=== PATIENT | female | born 1995 ===

== ENCOUNTER 2016-10-05 16:47 | Emergency (ER) | payer MEDICAID ==
[2016-10-05 16:48] VITALS: BMI 19.3
--- NOTE | 2016-10-05 17:22 | ED PDOC ---
Arrival/HPI - General Historian: Patient - History of Present Illness Time/Duration: < week Symptom Onset: Gradual Symptom Course: Worsening Quality: Throbbing Severity Level: 8 Activities at Onset: Other - General Chief Complaint: Abdominal Pain Time Seen by Provider: 10/05/16 17:15 - History of Present Illness Narrative History of Present Illness (Text): 20 F with no significant PMH presents to ED for complaint of back pain, yeast infection and UTI. Patient stated that it began Saturday. She went to [facility] on Saturday because she wanted to see if it would resolve on its own. At [facility], she was diagnosed with UTI. She was discharged on Cephalexin and Ibuprofen. Patient stated that she was unable to tolerate the medication and stopped taking it due to episodes of nausea/vomiting. She rated the pain as 8/10 in severity. She described the pain as constant, throbbing pain located on the L flank without radiation. Coughing, sneezing, deep breaths exacer fercho the pain while nothing alleviates it. Admits to dysuria, frequency, white vaginal discharge, fever/chills, nausea/vomiting. Denies cp, palpitations , abd pain, diarrhea. PMD: Denies PMH: Denies Med: Denies Allergy: guaifenesin PSH: Denies Hosp: child 06/2016 Fh: Renal CA Social: lives with family, unemployed, denies smoking/illicit drug use, occasional etoh use, LNMP 2 weeks ago - normal duration and flow (Imbrescia,Juan ) Past Medical History - Provider Review Nursing Documentation Reviewed: Yes - Travel History Have you recently traveled outside [place] w/in the past 3 mons?: No - Past History Past History: Non-Contributing - Infectious Disease Hx of Infectious Diseases: None - Reproductive Menopause: No - Cardiac Hx Hypotension: Yes - Renal Hx Pyelonephritis: Yes - Genitourinary/Gynecological Hx Genitourinary Disorders: Yes Hx Urinary Tract Infection: Yes - Psychiatric Hx Psychophysiologic Disorder: No Hx Substance Use: No - Anesthesia Hx Anesthesia: No Family/Social History - Physician Review Nursing Documentation Reviewed: Yes Family/Social History: Neoplasm/Cancer Smoking Status: Never Smoked Hx Alcohol Use: No Hx Substance Use: No Allergies/Home Meds Allergies/Adverse Reactions: Allergies guaifenesin [From Robitussin] Allergy (Verified 10/05/16 17:12) RASH Review of Systems - Review of Systems Constitutional: Fatigue, Fevers Eyes: absent: Vision Changes, Photophobia, Eye Pain ENT: absent: Hearing Changes, TMJ Pain Respiratory: absent: SOB, Cough, Wheezing Cardiovascular: absent: Chest Pain, Palpitations Gastrointestinal: Nausea, Vomiting. absent: Abdominal Pain Genitourinary Female: Dysuria, Frequency, Vaginal Discharge Musculoskeletal: Arthralgias, Back Pain Skin: absent: Rash Neurological: absent: Headache, Dizziness Endocrine: absent: Polydipsia, Other Hemo/Lymphatic: absent: Adenopathy, Easy Bleeding, Easy Bruising Psychiatric: absent: Anxiety, Depression, Suicidal Ideation Physical Exam Vital Signs Reviewed: Yes Temperature: Afebrile Blood Pressure: Normal Pulse: Tachycardic Respiratory Rate: Normal Appearance: Positive for: Comfortable Pain Distress: Moderate Mental Status: Positive for: Alert and Oriented X 3 - Systems Exam Head: No: Atraumatic, Normocephalic Pupils: Present: PERRL Extroacular Muscles: Present: EOMI Conjunctiva: Present: Normal Ears: Present: NORMAL TM Mouth: Present: Moist Mucous Membranes Pharnyx: Present: Normal Nose (External): No: Atraumatic, Abrasion Nose (Internal): Present: Normal Inspection Neck: Present: Normal Range of Motion, Trachea Midline Respiratory/Chest: Present: Clear to Auscultation, Good Air Exchange. No: Respiratory Distress, Accessory Muscle Use, Wheezes, Rales, Rhonchi Cardiovascular: Present: Normal S1, S2, Peripheal Pulses Present, Tachycardic Abdomen: Present: Normal Bowel Sounds. No: Tenderness, Distention, Peritoneal Signs, Rebound, Guarding Back: Present: CVA Tenderness (Left) Upper Extremity: Present: Normal Inspection, Normal ROM, NORMAL PULSES, Neurovascularly Intact, Capillary Refill < 2s. No: Cyanosis, Edema Lower Extremity: Present: Normal Inspection, NORMAL PULSES, Normal ROM, Capillary Refill < 2 s Neurological: Present: GCS=15, CN II-XII Intact, Speech Normal, Motor Func Grossly Intact Skin: Present: Warm, Dry, Normal Color Lymphatic: No: Cervical Adenopathy, Axillary Adenopathy, Inguinal Adenopathy Psychiatric: Present: Alert, Oriented x 3, Normal Insight, Normal Concentration Medical Decision Making ED Course and Treatment: 10/05/16 18:01 Patient given zofran, NS bolus, IV cipro. CBC, CMP, UA, Urine C&S, and Urine ordered. Labs were unremarkable. Patient was able to tolerate some liquids and food by mouth. Patient stable for discharge home. Rx for cipro, zofran, and ibuprofen given. (Juan Sorto) Seen and examined with resident. 20 y/o F p/w L flank pain and dysuria. L CVA tenderness on exam. Diagnosed with pyelo 2 days ago and discharged on Keflex and ibuprofen. Patient states she vomits up the medication and food. On comparison to previous visit, patient's temperature and HR much improved. Repeat labs here show much improvement in leukocytosis. Will change antibiotic to Cipro, add Zofran. Patient tolerated PO in ED. (Ferny Knutson) - Lab Interpretations Lab Results: 10/05/16 17:55 10/05/16 17:55 Lab Results 10/05/16 17:55: Urine Color Yellow, Urine Appearance Sl cloudy, Urine pH 6.0, Ur Specific [place] 1.010, Urine Protein Trace H, Urine Glucose (UA) Negative, Urine Ketones Negative, Urine Blood Small H, Urine Nitrate Negative, Urine Bilirubin Negative, Urine Urobilinogen 1.0 H, Ur Leukocyte Esterase Small H, Urine RBC 0 - 2, Urine WBC 10 - 15, Ur Epithelial Cells 4 - 5, Urine Bacteria Small, Urine HCG, Qual Negative 10/05/16 17:55: Sodium 137, Potassium 3.4 L, Chloride 99, Carbon Dioxide 24, Anion Gap 17, BUN 9, Creatinine 0.8, Est GFR ( Amer) > 60, Est GFR (Non- Af Amer) > 60, Random Glucose 91, Calcium 9.0, Total Bilirubin 0.7, AST 29, ALT 29, Alkaline Phosphatase 131, Total Protein 8.1, Albumin 4.6, Globulin 3.5, Albumin/Globulin Ratio 1.3 10/05/16 17:55: WBC 6.7 D, RBC 4.70, Hgb 13.4, Hct 38.0, MCV 80.9, MCH 28.5, MCHC 35.3, RDW 13.4, Plt Count 223, MPV 11.4 H - Medication Orders Current Medication Orders: Discontinued Medications Sodium Chloride (Sodium Chloride 0.9%) 1,000 mls @ 999 mls/hr IV .Q1H1M STA Stop: 10/05/16 18:36 Last Admin: 10/05/16 18:05 Dose: 999 mls/hr Ciprofloxacin (Cipro 400mg/200ml Dsw) 400 mg in 200 mls @ 133.3 mls/hr IVPB STAT STA PRN Reason: Protocol Stop: 10/05/16 19:18 Last Admin: 10/05/16 18:24 Dose: 133.3 mls/hr Ketorolac Tromethamine (Toradol) 15 mg IVP STAT STA Stop: 10/05/16 17:37 Last Admin: 10/05/16 18:01 Dose: 15 mg Ondansetron HCl (Zofran Inj) 4 mg IVP STAT STA Stop: 10/05/16 17:37 Last Admin: 10/05/16 18:01 Dose: 4 mg Disposition/Present on Arrival - Present on Arrival Any Indicators Present on Arrival: No History of DVT/PE: No History of Uncontrolled Diabetes: No Urinary Catheter: No History of Decub. Ulcer: No History Surgical Site Infection Following: None - Disposition Have Diagnosis and Disposition been Completed?: Yes Disposition Time: 19:11 Patient Plan: Discharge - Disposition Diagnosis: Pyelonephritis Disposition: HOME/ ROUTINE Condition: STABLE Discharge Instructions (ExitCare): Urinary Tract Infection in Women (ED) Additional Instructions: Patient stable for discharge home. Patient is to take Ciprofloxacin 500 mg by mouth three times per day for 10 days (do not miss doses). Patient also to take Ibuprofen 800 mg every 8 hours as needed for pain and Zofran 4 mg every 8 hours as needed for nausea. Patient is to follow up with PMD within 2-3 days. Please return to ED if symptoms persist or condition worsens. All instructions were discussed with the patient. She verbalized understanding and agreement. Prescriptions: Ciprofloxacin [Cipro] 500 mg PO BID #20 tab Ibuprofen [Motrin Tab] 800 mg PO TID PRN #30 tab PRN Reason: Pain, Moderate (4-7) Ondansetron ODT [Zofran ODT] 4 mg PO TID PRN #30 odt PRN Reason: Nausea/Vomiting
[2016-10-05] MEDS ORDERED: Sodium Chloride 0.9% 1,000 ML IV STA (17:36)
[2016-10-05] MEDS ORDERED: Ciprofloxacin 400mg/200ml D5W 400 MG/200 ML BAG IVPB STA (17:48)
[2016-10-05 18:09] VITALS: O2SAT 100
[2016-10-05 18:21] LABS: ALB/GLOB RATIO 1.3 (1.1-1.8); ALBUMIN 4.6 g/dL (3.0-4.8); ALT/SGPT 29 U/L (7-56); AST/SGOT 29 U/L (15-39); BLOOD UREA NITROGEN 9 mg/dL (7-21); GFR AFRICAN-AMERICAN > 60; GFR NON-AFRICAN AMERICAN > 60
[2016-10-05 18:28] LABS: HEMOGLOBIN 13.4 gm/dL (12.0-16.0); MEAN CELL VOLUME 80.9 fL (80.0-105.0); MEAN CORPUSCULAR HEMOGLOBIN 28.5 pg (25.0-35.0); MEAN CORPUSCULAR HGB CONC 35.3 g/dl (31.0-37.0); MEAN PLATELET VOLUME 11.4 fl (7.0-11.0); RBC 4.7 10^6/uL (3.5-6.1); RED CELL DISTRIBUTION WIDTH 13.4 % (11.5-14.5); URINE BILIRUBIN NEGATIVE (NEGATIVE); URINE BLOOD SMALL (NEGATIVE); URINE GLUCOSE (UA) NEGATIVE (NEGATIVE); URINE LEUKOCYTE ESTERASE SMALL Leu/uL (NEGATIVE); URINE NITRATE NEGATIVE (NEGATIVE); URINE PROTEIN TRACE mg/dL (<30 mg/dL); WHITE BLOOD COUNT 6.7 10^3/ul (4.5-11.0)
[2016-10-05 18:30] LABS: URINE APPEARANCE SL CLOUDY (CLEAR); URINE COLOR YELLOW (YELLOW)
[2016-10-05 18:35] LABS: URINE RBC 0 - 2 /hpf (0-2)
[2016-10-05 18:36] LABS: URINE BACTERIA SMALL (NEG)
[2016-10-05 18:37] LABS: HCG,QUALITATIVE URINE NEGATIVE (NEGATIVE)
[2016-10-05 21:27] VITALS: RESP 16
[2016-10-05 21:28] VITALS: BP 116/65; PULSE 82; TEMP 98.9
== END 2016-10-05 21:26 | disposition home or self-care (01) ==
LOC: ED 16:47
DX: N10 Acute pyelonephritis (principal)
CPT/HCPCS: 80053; 81001; 84703; 85027; 87086; 87181; 96365; 96375; 99284; J0744; J1885; J2405; J7040

== ENCOUNTER 2016-12-14 09:54 | Emergency (ER) | payer MEDICAID, OTHER ==
[2016-12-14 09:57] VITALS: BMI 21.4
[2016-12-14 10:02] VITALS: TEMP 98.1
--- NOTE | 2016-12-14 11:24 | ED PDOC ---
Arrival/HPI - General Chief Complaint: Abnormal Skin Integrity Time Seen by Provider: 12/14/16 10:54 Historian: Patient - History of Present Illness Narrative History of Present Illness (Text): 12/14/16 11:21 21-year-old female presents today with concerns for a cyst on the dorsal aspect of the right hand as well as swelling to the left fourth finger. Patient states she's noticed a bump on the dorsal aspect of the right hand for the past 5 months or so. Patient states occasionally it will give her pain if she hits it into something. She denies numbness weakness or tingling in the extremity. Denies decreased range of motion of the extremities. Patient states she also noticed a swelling to the left fourth finger. Patient states she had a trauma along time ago and since then she still had this continued swelling to the finger and is worried that there may be something wrong. No medications have been taken for pain at home. No other complaints Past Medical History - Provider Review Nursing Documentation Reviewed: Yes - Travel History Have you recently traveled outside [place] w/in the past 3 mons?: No - Past History Past History: Non-Contributing - Infectious Disease Hx of Infectious Diseases: None - Cardiac Hx Hypotension: Yes - Renal Hx Pyelonephritis: Yes - Genitourinary/Gynecological Hx Genitourinary Disorders: Yes Hx Urinary Tract Infection: Yes - Psychiatric Hx Psychophysiologic Disorder: No Hx Substance Use: No - Anesthesia Hx Anesthesia: No Family/Social History - Physician Review Nursing Documentation Reviewed: Yes Family/Social History: Unknown Family HX Smoking Status: Never Smoked Hx Alcohol Use: Yes Frequency of alcohol use: Socially Hx Substance Use: No Allergies/Home Meds Allergies/Adverse Reactions: Allergies guaifenesin [From Robitussin] Allergy (Verified 10/05/16 17:12) RASH Review of Systems - Review of Systems Constitutional: absent: Fatigue, Fevers Respiratory: absent: SOB, Cough Cardiovascular: absent: Chest Pain, Palpitations Gastrointestinal: absent: Abdominal Pain, Nausea, Vomiting Genitourinary Female: absent: Dysuria Musculoskeletal: Arthralgias Skin: Skin Lesions Neurological: absent: Headache, Dizziness Psychiatric: absent: Anxiety, Depression Physical Exam Vital Signs Reviewed: Yes Vital Signs Temp Pulse Resp BP Pulse Ox 12/14/16 09:55 98.1 F 78 16 103/67 96 Temperature: Afebrile Blood Pressure: Normal Pulse: Regular Respiratory Rate: Normal Appearance: Positive for: Well-Appearing, Non-Toxic, Comfortable Pain Distress: None Mental Status: Positive for: Alert and Oriented X 3 - Systems Exam Head: Present: Atraumatic Neck: Present: Normal Range of Motion Respiratory/Chest: Present: Clear to Auscultation, Good Air Exchange. No: Respiratory Distress, Accessory Muscle Use Cardiovascular: Present: Regular Rate and Rhythm, Normal S1, S2. No: Murmurs Upper Extremity: Present: Normal ROM, NORMAL PULSES, Tenderness (left 4th finger ; there is a small round mobile mass noted to the 4th finger over the middle phalanx: minimal tenderness; no erythema; no ecchymosis; full rom of finger. sensation and distal pulses intact. right hand; there is a 2cm round non tender mobile mass noted to the dorsal aspect of the hand approximately over the 2nd/3rd metacarpals. no erythema;), Swelling, Neurovascularly Intact, Capillary Refill < 2s. No: Erythema, Deformity Neurological: Present: GCS=15 Skin: Present: Warm, Dry Psychiatric: Present: Alert, Oriented x 3 Medical Decision Making ED Course and Treatment: 12/14/16 11:25 Patient nontoxic well-appearing in no distress with stable vital signs X-rays of the left fourth finger: no fracture pt denies pain at present time. pt with mass to right dorsal aspect; most likely ganglion cyst; will refer to surgeon; no signs of infection currently. I discussed all results with patient advised to followup with the surgeon within the next 2 days. Return if symptoms worsen persist or new symptoms develop Patient verbalizes understanding of discharge instructions and need for immediate followup. Impression: skin lesion, ganglion cyst tylenol every 4 hours as needed for pain Followup with the surgeon within the next 2 days Followup with primary care physician within the next 2 days Return if any other concerning symptoms develop - RAD Interpretation Radiology Orders: 12/14/16 10:54 HAND LEFT 4TH DIGIT (FINGER) [RAD] Stat Disposition/Present on Arrival - Present on Arrival Any Indicators Present on Arrival: No History of DVT/PE: No History of Uncontrolled Diabetes: No Urinary Catheter: No History of Decub. Ulcer: No History Surgical Site Infection Following: None - Disposition Have Diagnosis and Disposition been Completed?: Yes Diagnosis: Ganglion cyst, Skin lesion Disposition: HOME/ ROUTINE Disposition Time: 11:28 Patient Plan: Discharge Condition: GOOD Discharge Instructions (ExitCare): Ganglion Cysts (ED) Additional Instructions: tylenol every 4 hours as needed for pain Followup with the surgeon within the next 2 days Followup with primary care physician within the next 2 days Return if any other concerning symptoms develop Referrals: Omar Melendrez MD [Staff Provider] - Follow up with primary Camden Mackenzie III, MD [Medical Doctor] - Follow up with primary [facility] [place] - Follow up with primary [facility] - Follow up with primary Forms: [employer] (Kosovan)
[2016-12-14 11:37] VITALS: BP 108/70; PULSE 75; RESP 17; O2SAT 99
--- NOTE | 2016-12-14 12:37 | RAD ---
PROCEDURE: Left ring finger radiographs. HISTORY: left 4th finger middle phalanx swelling COMPARISON: None. TECHNIQUE: AP radiograph of the left hand, as well as spot oblique and lateral images of left ring finger were obtained. FINDINGS: LEFT RING FINGER: Questionable focal erosion at the base of the distal phalanx of the 4th finger. No evidence of acute fracture. . Remainder of the left hand (as seen on the AP view) is grossly unremarkable. JOINTS: Normal. SOFT TISSUES: Focal soft tissue swelling/ densities seen adjacent to the middle phalanx of the 4th finger OTHER FINDINGS: None. IMPRESSION: No evidence of acute fracture or dislocation. 4th finger focal soft tissue swelling/density seen. Questionable focal lucency/or erosion at the base of the distal phalanx of the 4th finger.
== END 2016-12-14 11:40 | disposition home or self-care (01) ==
LOC: ED 09:54
DX: M67.441 Ganglion, right hand (principal); L98.9 Disorder of the skin and subcutaneous tissue, unspecified

== ENCOUNTER 2017-07-17 03:52 | Emergency (ER) | payer MEDICAID ==
[2017-07-17 03:52] VITALS: BMI 21.4
--- NOTE | 2017-07-17 04:21 | ED PDOC ---
Arrival/HPI - General Chief Complaint: Abdominal Pain Time Seen by Provider: 07/17/17 03:55 Historian: Patient - History of Present Illness Narrative History of Present Illness (Text): 07/17/17 04:18 Erma Sotelo is a 21 year old female, whose past medical history includes anemia and sickle cell train, not currently on any medication, who presents to the Emergency department complaining of abdominal discomfort for 30 minutes prior to arrival. Patient reports associated nausea and vomiting. Patient also reports occasional vaginal spotting, notes her menstrual period is irregular. Patient denies any fever, chills, chest pain, shortness of breath, diarrhea, urinary symptoms, back pain, neck pain, headache, dizziness, or any other complaints. Time/Duration: 1/2 hour Symptom Onset: Gradual Symptom Course: Unchanged Activities at Onset: Light Context: Home Past Medical History - Provider Review Nursing Documentation Reviewed: Yes - Past History Past History: Non-Contributing - Infectious Disease Hx of Infectious Diseases: None - Cardiac Hx Hypotension: Yes - Renal Hx Pyelonephritis: Yes - Genitourinary/Gynecological Hx Genitourinary Disorders: Yes Hx Urinary Tract Infection: Yes - Psychiatric Hx Psychophysiologic Disorder: No Hx Substance Use: No - Anesthesia Hx Anesthesia: No Family/Social History - Physician Review Nursing Documentation Reviewed: Yes Family/Social History: Unknown Family HX Smoking Status: Never Smoked Hx Alcohol Use: Yes Hx Substance Use: No Allergies/Home Meds Allergies/Adverse Reactions: Allergies guaifenesin [From Robitussin] Allergy (Verified 07/17/17 04:12) RASH Review of Systems - Physician Review All systems were reviewed & negative as marked: Yes - Review of Systems Constitutional: Normal Eyes: Normal ENT: Normal Respiratory: Normal. absent: SOB, Cough Cardiovascular: Normal. absent: Chest Pain Gastrointestinal: Abdominal Pain, Nausea, Vomiting. absent: Diarrhea Genitourinary Female: Vaginal Bleeding. absent: Dysuria, Frequency, Hematuria, Urine Output Changes Musculoskeletal: Normal Skin: Normal. absent: Rash Neurological: Normal. absent: Headache, Dizziness Endocrine: Normal Hemo/Lymphatic: Normal Psychiatric: Normal Physical Exam Vital Signs Reviewed: Yes Vital Signs Temp Pulse Resp BP Pulse Ox 07/17/17 04:13 97.8 F 108 H 18 112/63 100 Temperature: Afebrile Blood Pressure: Normal Pulse: Regular Respiratory Rate: Normal Appearance: Positive for: Well-Appearing, Non-Toxic, Comfortable Pain Distress: None Mental Status: Positive for: Alert and Oriented X 3 - Systems Exam Head: Present: Atraumatic, Normocephalic Pupils: Present: PERRL Extroacular Muscles: Present: EOMI Conjunctiva: Present: Normal Mouth: Present: Moist Mucous Membranes Pharnyx: Present: Normal Neck: Present: Normal Range of Motion Respiratory/Chest: Present: Clear to Auscultation, Good Air Exchange. No: Respiratory Distress, Accessory Muscle Use Cardiovascular: Present: Regular Rate and Rhythm, Normal S1, S2. No: Murmurs Abdomen: No: Tenderness, Distention, Peritoneal Signs Back: Present: Normal Inspection Upper Extremity: Present: Normal Inspection. No: Cyanosis, Edema Lower Extremity: Present: Normal Inspection. No: Edema Neurological: Present: GCS=15, CN II-XII Intact, Speech Normal, Motor Func Grossly Intact, Normal Sensory Function Skin: Present: Warm, Dry, Normal Color. No: Rashes Psychiatric: Present: Alert, Oriented x 3, Normal Insight, Normal Concentration Medical Decision Making ED Course and Treatment: 07/17/17 04:18 Impression: 21 year old female complaining of abdominal discomfort, nausea, vomiting for 30 minutes prior to arrival. Plan: -- Labs, lipase -- Urinalysis -- IV fluids -- Zofran -- Pepcid -- Reassess and disposition Progress Notes: 07/17/17 06:48 Pt. feels much better following treatment in Emergency department.Will d/c with meds/follow up care instructions. - Lab Interpretations Lab Results: 07/17/17 04:30 07/17/17 04:30 Lab Results 07/17/17 04:30: Urine Color Yellow, Urine Appearance Cloudy, Urine pH 8.5, Ur Specific [place] 1.015, Urine Protein Trace H, Urine Glucose (UA) Negative, Urine Ketones Negative, Urine Blood Negative, Urine Nitrate Negative, Urine Bilirubin Negative, Urine Urobilinogen 0.2, Ur Leukocyte Esterase Small H, Urine RBC Negative, Urine WBC 2 - 5, Ur Epithelial Cells 6 - 8, Urine Bacteria Large, Urine Other Mucus, Urine HCG, Qual Negative 07/17/17 04:30: WBC 12.6 H D, RBC 4.80, Hgb 13.7, Hct 39.1, MCV 81.5, MCH 28.5, MCHC 35.0, RDW 13.2, Plt Count 245, MPV 10.7 07/17/17 04:30: Sodium 142, Potassium 3.8, Chloride 105, Carbon Dioxide 25, Anion Gap 16, BUN 15, Creatinine 0.7, Est GFR ( Amer) > 60, Est GFR (Non- Af Amer) > 60, Random Glucose 107, Calcium 9.4, Total Bilirubin 0.7, AST 30, ALT 30, Alkaline Phosphatase 75, Total Protein 8.0, Albumin 5.1 H, Globulin 3.0 , Albumin/Globulin Ratio 1.7, Lipase 141 - Medication Orders Current Medication Orders: Discontinued Medications Famotidine (Pepcid) 20 mg IVP STAT STA Stop: 07/17/17 04:23 Last Admin: 07/17/17 04:41 Dose: 20 mg IVP Administration Document 07/17/17 04:41 AD (Rec: 07/17/17 04:41 AD [id number]) Charges for Administration # of IVP Administrations 1 Sodium Chloride (Sodium Chloride 0.9%) 1,000 mls @ 999 mls/hr IV .Q1H1M STA Stop: 07/17/17 05:22 Last Admin: 07/17/17 04:40 Dose: 999 mls/hr eMAR Start Stop Document 07/17/17 04:40 AD (Rec: 07/17/17 04:41 AD [id number]) Intravenous Solution Start Date 07/17/17 Start Time 04:40 Ondansetron HCl (Zofran Inj) 4 mg IVP ONCE ONE Stop: 07/17/17 04:23 Last Admin: 07/17/17 04:41 Dose: 4 mg IVP Administration Document 07/17/17 04:41 AD (Rec: 07/17/17 04:41 AD [id number]) Charges for Administration # of IVP Administrations 1 Ondansetron HCl (Zofran Inj) 4 mg IVP ONCE ONE Stop: 07/17/17 05:49 Last Admin: 07/17/17 05:53 Dose: 4 mg IVP Administration Document 07/17/17 05:53 GUILLAUME (Rec: 07/17/17 05:53 GUILLAUME [id number]) Charges for Administration # of IVP Administrations 1 - Scribe Statement The provider has reviewed the documentation as recorded by the Scribluana Walsh Drake Provider Thierryibe Attestation: All medical record entries made by the Scribe were at my direction and personally dictated by me. I have reviewed the chart and agree that the record accurately reflects my personal performance of the history, physical exam, medical decision making, and the department course for this patient. I have also personally directed, reviewed, and agree with the discharge instructions and disposition. Disposition/Present on Arrival - Present on Arrival Any Indicators Present on Arrival: No History of DVT/PE: No History of Uncontrolled Diabetes: No Urinary Catheter: No History of Decub. Ulcer: No History Surgical Site Infection Following: None - Disposition Have Diagnosis and Disposition been Completed?: Yes Diagnosis: Gastritis Disposition: HOME/ ROUTINE Disposition Time: 06:49 Patient Plan: Discharge Condition: GOOD Discharge Instructions (ExitCare): Gastritis (DC) Additional Instructions: Drink small amounts of liquids at a time/take meds as prescribed/advance diet slowly as tolerated/follow up with your doctor/any recurrent worsening symptoms return to the emergency room. Prescriptions: Phenobarb/Hyoscy/Atropine/Scop [ Tablet] 16.2 mg PO Q6 PRN #12 tablet PRN Reason: Dyspepsia Ondansetron [Zofran Odt] 4 mg PO Q6 #12 odt Forms: [employer] (Niuean), WORK NOTE
[2017-07-17] MEDS ORDERED: Sodium Chloride 0.9% 1,000 ML IV STA (04:22)
[2017-07-17 04:53] LABS: PH,URINE 8.5 (4.7-8.0); URINE BILIRUBIN NEGATIVE (NEGATIVE); URINE BLOOD NEGATIVE (NEGATIVE); URINE GLUCOSE (UA) NEGATIVE (NEGATIVE); URINE LEUKOCYTE ESTERASE SMALL Leu/uL (NEGATIVE); URINE PROTEIN TRACE mg/dL (<30 mg/dL); URINE UROBILINOGEN 0.2 E.U./dL (<1 E.U./dL)
[2017-07-17 04:56] LABS: HCG,QUALITATIVE URINE NEGATIVE (NEGATIVE); URINE APPEARANCE CLOUDY (CLEAR); URINE COLOR YELLOW (YELLOW)
[2017-07-17 05:08] LABS: ALB/GLOB RATIO 1.7 (1.1-1.8); ALBUMIN 5.1 g/dL (3.0-4.8); ALT/SGPT 30 U/L (7-56); AST/SGOT 30 U/L (14-36); BLOOD UREA NITROGEN 15 mg/dL (7-21); CALCIUM 9.4 mg/dL (8.4-10.5); GFR AFRICAN-AMERICAN > 60; GFR NON-AFRICAN AMERICAN > 60; LIPASE 141 U/L (23-300)
[2017-07-17 05:11] LABS: URINE RBC NEGATIVE /hpf (0-2)
[2017-07-17 05:12] LABS: URINE BACTERIA LARGE (NEG)
[2017-07-17 05:15] LABS: HEMOGLOBIN 13.7 g/dL (12.0-16.0); MEAN CELL VOLUME 81.5 fl (80.0-105.0); MEAN CORPUSCULAR HEMOGLOBIN 28.5 pg (25.0-35.0); MEAN PLATELET VOLUME 10.7 fl (7.0-11.0); RBC 4.8 10^6/uL (3.5-6.1); RED CELL DISTRIBUTION WIDTH 13.2 % (11.5-14.5)
[2017-07-17 05:17] LABS: WHITE BLOOD COUNT 12.6 10^3/ul (4.5-11.0)
[2017-07-17 07:40] VITALS: BP 103/56; PULSE 84; RESP 16; TEMP 98.8; O2SAT 98
== END 2017-07-17 07:37 | disposition home or self-care (01) ==
LOC: ED 03:52
DX: K29.70 Gastritis, unspecified, without bleeding (principal)
CPT/HCPCS: 80053; 81001; 83690; 84703; 85027; 87086; 96374; 96375; 96376; 99284; J2405; J7040

== ENCOUNTER 2017-07-17 16:27 | Emergency (ER) | payer MEDICAID ==
[2017-07-17 16:27] VITALS: BMI 21.4
[2017-07-17 16:33] VITALS: RESP 16; O2SAT 99
[2017-07-17] MEDS ORDERED: Sodium Chloride 0.9% 1,000 ML IV STA (17:40)
[2017-07-17 18:25] LABS: BASO # 0.01 K/mm3 (0.0-2.0); BASO % 0.2 % (0.0-3.0); EOS % 0.2 % (1.5-5.0); GRAN # 5.32 (1.4-6.5); GRAN % 84.6 % (50.0-68.0); HEMOGLOBIN 12.5 g/dL (12.0-16.0); LYMPH # 0.6 (1.2-3.4); LYMPH % 10.2 % (22.0-35.0); MEAN CELL VOLUME 81.1 fl (80.0-105.0); MEAN CORPUSCULAR HEMOGLOBIN 28.4 pg (25.0-35.0); MEAN PLATELET VOLUME 10.8 fl (7.0-11.0); MONO # 0.3 (0.1-0.6); MONO % 4.8 % (1.0-6.0); RBC 4.4 10^6/uL (3.5-6.1); RED CELL DISTRIBUTION WIDTH 13.3 % (11.5-14.5); WHITE BLOOD COUNT 6.3 10^3/ul (4.5-11.0)
[2017-07-17 18:40] LABS: ALBUMIN 4.3 g/dL (3.0-4.8); ALT/SGPT 30 U/L (7-56); AST/SGOT 23 U/L (14-36); BLOOD UREA NITROGEN 11 mg/dL (7-21); CALCIUM 8.7 mg/dL (8.4-10.5); GFR AFRICAN-AMERICAN > 60; GFR NON-AFRICAN AMERICAN > 60; LIPASE 80 U/L (23-300)
[2017-07-17] MEDS ORDERED: Iohexol 350 MG/100 ML VIAL ONE (19:05)
[2017-07-17 19:27] LABS: URINE BILIRUBIN NEGATIVE (NEGATIVE); URINE BLOOD NEGATIVE (NEGATIVE); URINE GLUCOSE (UA) NEGATIVE (NEGATIVE); URINE LEUKOCYTE ESTERASE SMALL Leu/uL (NEGATIVE); URINE PROTEIN NEGATIVE mg/dL (<30 mg/dL); URINE UROBILINOGEN 0.2 E.U./dL (<1 E.U./dL)
[2017-07-17 19:36] LABS: URINE APPEARANCE SL CLOUDY (CLEAR); URINE COLOR YELLOW (YELLOW)
[2017-07-17 19:47] LABS: URINE BACTERIA MANY (NEG); URINE RBC NEGATIVE /hpf (0-2); URINE WBC 20 - 25 /hpf (0-6)
--- NOTE | 2017-07-17 20:31 | ED PDOC ---
Arrival/HPI - General Chief Complaint: GI Problem Time Seen by Provider: 07/17/17 16:32 Historian: Patient - History of Present Illness Narrative History of Present Illness (Text): 07/17/17 20:27 21-year-old female presents today with lower abdominal pain nausea and vomiting since this morning. Patient states she was woken up in the middle the night with severe abdominal pain. Patient states she was seen in the emergency room felt better and was sent home. Patient states while at home she continued having vomiting and diarrhea. Patient states the pain in the lower abdomen worsens. Patient denies fevers or chills. Patient complaining of nausea currently. Patient complaining of decreased appetite. Patient complaining of urinary frequency. Patient denies vaginal bleeding or vaginal discharge. Patient denies . Past Medical History - Provider Review Nursing Documentation Reviewed: Yes - Travel History Have you recently traveled outside [place] w/in the past 3 mons?: No - Past History Past History: Non-Contributing - Infectious Disease Hx of Infectious Diseases: None - Cardiac Hx Cardiac Disorders: Yes Hx Hypotension: Yes - Pulmonary Hx Respiratory Disorders: No - Neurological Hx Neurological Disorder: No - HEENT Hx HEENT Disorder: No - Renal Hx Renal Disorder: Yes Hx Pyelonephritis: Yes - Endocrine/Metabolic Hx Endocrine Disorders: No - Hematological/Oncological Hx Blood Disorders: Yes Hx Anemia: Yes Hx Sickle Cell Trait: Yes - Integumentary Hx Dermatological Disorder: No - Musculoskeletal/Rheumatological Hx Musculoskeletal Disorders: No - Gastrointestinal Hx Gastrointestinal Disorders: Yes Hx Vomiting: Yes - Genitourinary/Gynecological Hx Genitourinary Disorders: Yes Hx Urinary Tract Infection: Yes - Psychiatric Hx Psychophysiologic Disorder: No Hx Substance Use: No - Anesthesia Hx Anesthesia: No Family/Social History - Physician Review Nursing Documentation Reviewed: Yes Family/Social History: Unknown Family HX Smoking Status: Never Smoked Hx Alcohol Use: Yes Hx Substance Use: No Allergies/Home Meds Allergies/Adverse Reactions: Allergies guaifenesin [From Robitussin] Allergy (Verified 07/17/17 16:28) RASH Review of Systems - Review of Systems Constitutional: Fatigue. absent: Fevers Respiratory: absent: SOB, Cough Cardiovascular: absent: Chest Pain, Palpitations Gastrointestinal: Abdominal Pain, Nausea, Vomiting. absent: Constipation Genitourinary Female: Dysuria, Frequency. absent: Hematuria, Vaginal Bleeding, Vaginal Discharge Musculoskeletal: Back Pain. absent: Arthralgias, Neck Pain Skin: absent: Rash, Pruritis Neurological: absent: Headache, Dizziness Psychiatric: absent: Anxiety, Depression, Suicidal Ideation Physical Exam Vital Signs Reviewed: Yes Vital Signs Temp Pulse Resp BP Pulse Ox 07/17/17 22:21 77 16 120/71 99 07/17/17 20:16 71 16 128/71 99 07/17/17 18:08 88 16 120/73 99 07/17/17 16:32 98.2 F 107 H 16 104/70 99 Temperature: Afebrile Blood Pressure: Normal Pulse: Regular Respiratory Rate: Normal Appearance: Positive for: Well-Appearing, Non-Toxic, Comfortable Pain Distress: None Mental Status: Positive for: Alert and Oriented X 3 - Systems Exam Head: Present: Atraumatic Mouth: Present: Moist Mucous Membranes Neck: Present: Normal Range of Motion Respiratory/Chest: Present: Clear to Auscultation, Good Air Exchange. No: Respiratory Distress, Accessory Muscle Use Cardiovascular: Present: Regular Rate and Rhythm, Normal S1, S2. No: Murmurs Abdomen: Present: Tenderness (+ rlq, llq, suprapubic tenderness), Guarding. No : Distention, Peritoneal Signs, Rebound Back: Present: Normal Inspection. No: CVA Tenderness, Midline Tenderness, Paraspinal Tenderness Upper Extremity: Present: Normal ROM Lower Extremity: Present: Normal ROM Neurological: Present: GCS=15 Skin: Present: Warm, Dry, Normal Color. No: Rashes Psychiatric: Present: Alert, Oriented x 3 Medical Decision Making ED Course and Treatment: 07/17/17 20:31 Patient is nontoxic well appearing with stable vital signs presenting with [ severe] abdominal pain CBC wnl CMP k:3.4 Lipase 80 Urinalysis + nitrites, + leukocytes, + 20-25wbcs CAT scan: ABDOMEN: Liver: No mass. Gallbladder and bile ducts: No calcified stones. No ductal dilation. Pancreas: Normal contour, without acute peripancreatic stranding. Spleen: No splenomegaly. Adrenals: No mass. Kidneys and ureters: There is left renal pelviectasis, with mild dilatation of the proximal left ureter. No obstructing calculus is visualized within the proximal left ureter. Evaluation for calculi is limited by the presence of intravenous contrast. Stomach and bowel: There is gaseous and fecal distention of the rectum. Evaluation of bowel is limited by the absence of oral contrast. Air-fluid levels are identified within small bowel loops, without significant distention. Appendix: No findings to suggest acute appendicitis. PELVIS: Bladder: No mass. Reproductive: Within the right ovary, there is a 1.7 x 1.3 cm hypodense probable cyst with internal septation. There is deviation of the uterus to the left. Hypodense probable follicles are seen within the bilateral ovaries. ABDOMEN and PELVIS: Intraperitoneal space: There is a small amount of free fluid within the pelvis. Bones/joints: There is mild levoscoliosis of the lower thoracic and lumbar spine. Vasculature: No abdominal aortic aneurysm. Lymph nodes: No enlarged lymph nodes. IMPRESSION: 1. There is left renal pelviectasis, with mild dilatation of the proximal left ureter. 2. There is a small amount of free fluid within the pelvis. 3. Within the right ovary, there is a 1.7 x 1.3 cm hypodense probable cyst with internal septation. This can be further evaluated with ultrasound. 4. There is gaseous and fecal distention of the rectum. 5. Incidental/non-acute findings are described above. transvaginal US; FINDINGS: Uterus/cervix: The uterus measures 9.3 x 4.1 x 5.9 cm. The uterus is anteverted. The endometrial thickness is 1.2 cm. A small hypoechoic probable nabothian cyst is visualized at the level of the cervix. No myometrial mass. Right ovary: Within the right ovary, there is a 1.8 x 1.5-1.4 cm hypoechoic simple cyst. The right ovary measures 3.5 x 2.6 x 3.8 cm. Additional hypoechoic follicles are visualized within the right ovary. There is physiologic blood flow within the right ovary, without evidence of torsion. Left ovary: The left ovary measures 3.6 x 2.6 x 3.8 cm. There is physiologic blood flow within the left ovary, without evidence of torsion. Multiple hypoechoic follicles are visualized within the left ovary. Free fluid: There is a small amount of free fluid within the pelvis. Bladder: Suboptimal evaluation. IMPRESSION: 1. Within the right ovary, there is a 1.8 x 1.5-1.4 cm hypoechoic simple cyst. 2. There is a small amount of free fluid within the pelvis. 3. A small probable nabothian cyst is visualized at the level of the cervix. Patient reassessment:pt feeling better after medications; no vomiting in er. Vitals are stable. Patient in no distress. Abdomen nontender keflex given po for UTi. Discussed all results with patient in depth Patient was advised to take antibiotics as prescribed and follow-up with her web analytics developer within the next 2 days. Patient was advised me to return symptoms worsen persist or if new concerning symptoms develop I discussed CAT scan and ultrasound findings in depth with the patient advised the patient of ovarian cyst and need for follow-up with a web analytics developer Patient verbalizes understanding of discharge instructions and need for immediate followup. all aspects of this case were discussed the attending of record. Impression: Abdominal pain, UTI, ovarian cyst Motrin every 6 hours as needed for pain Pepcid one tablet daily One capsule twice daily 7 days Follow up with primary care physician within the next 2 days Follow-up with her web analytics developer within the next 2 days Return immediately if symptoms worsen persist or if new symptoms develop: High fevers, increasing pain, vomiting, diarrhea or any other concerning symptoms develop Reassessment Condition: Re-examined, Improved - Lab Interpretations Lab Results: 07/17/17 18:11 07/17/17 18:11 Lab Results 07/17/17 19:11: Urine Color Yellow, Urine Appearance Sl cloudy, Urine pH 6.0, Ur Specific [place] 1.015, Urine Protein Negative, Urine Glucose (UA) Negative, Urine Ketones Negative, Urine Blood Negative, Urine Nitrate Positive H, Urine Bilirubin Negative, Urine Urobilinogen 0.2, Ur Leukocyte Esterase Small H, Urine RBC Negative, Urine WBC 20 - 25, Ur Epithelial Cells 3 - 4, Urine Bacteria Many 07/17/17 18:11: WBC 6.3 D, RBC 4.40, Hgb 12.5, Hct 35.7 L, MCV 81.1, MCH 28.4, MCHC 35.0, RDW 13.3, Plt Count 203, MPV 10.8, Gran % 84.6 H, Lymph % (Auto) 10.2 L, [place] % (Auto) 4.8, Eos % (Auto) 0.2 L, Baso % (Auto) 0.2, Gran # 5.32, Lymph # (Auto) 0.6 L, [place] # (Auto) 0.3, Eos # (Auto) 0.0, Baso # (Auto) 0.01 07/17/17 18:11: Sodium 138, Potassium 3.4 L, Chloride 104, Carbon Dioxide 26, Anion Gap 12, BUN 11, Creatinine 0.8, Est GFR ( Amer) > 60, Est GFR (Non- Af Amer) > 60, Random Glucose 89, Calcium 8.7, Total Bilirubin 0.9, AST 23, ALT 30, Alkaline Phosphatase 53, Total Protein 6.5, Albumin 4.3, Globulin 2.2, Albumin/Globulin Ratio 2.0 H, Lipase 80 - RAD Interpretation Radiology Orders: 07/17/17 17:39 ABD & PELVIS IV CONTRAST ONLY [CT] Stat 07/17/17 22:14 TRANSVAGINAL [US] Stat - Medication Orders Current Medication Orders: Discontinued Medications Famotidine (Pepcid) 20 mg IVP STAT STA Stop: 07/17/17 19:45 Last Admin: 07/17/17 20:18 Dose: 20 mg IVP Administration Document 07/17/17 20:18 MS (Rec: 07/17/17 20:18 MS [id number]) Charges for Administration # of IVP Administrations 1 Sodium Chloride (Sodium Chloride 0.9%) 1,000 mls @ 999 mls/hr IV .Q1H1M STA Stop: 07/17/17 18:40 Last Admin: 07/17/17 18:30 Dose: 999 mls/hr eMAR Start Stop Document 07/17/17 18:30 MS (Rec: 07/17/17 18:31 MS [id number]) Intravenous Solution Start Date 07/17/17 Start Time 18:00 End Date 07/17/17 End time 19:00 Total Infusion Time 60 Ketorolac Tromethamine (Toradol) 30 mg IVP STAT STA Stop: 07/17/17 19:45 Last Admin: 07/17/17 20:17 Dose: 30 mg MAR Pain Assessment Document 07/17/17 20:17 MS (Rec: 07/17/17 20:18 MS [id number]) Pain Reassessment Is this a pain reassessment? No Sleep Is patient sleeping during reassessment? No Presence of Pain Presence of Pain Yes Pain Scale Used Pain Scale Used Numeric Location Upper or Lower Lower Pain Location Body Site Abdomen Description Description Constant Intensity of Pain at present 8 Pain Behavior Moaning Withdrawal from Touch Rubbing Site IVP Administration Document 07/17/17 20:17 MS (Rec: 07/17/17 20:18 MS [id number]) Charges for Administration # of IVP Administrations 1 Ondansetron HCl (Zofran Inj) 4 mg IVP STAT STA Stop: 07/17/17 17:41 Last Admin: 07/17/17 18:20 Dose: 4 mg IVP Administration Document 07/17/17 18:20 MS (Rec: 07/17/17 18:31 MS [id number]) Charges for Administration # of IVP Administrations 1 Disposition/Present on Arrival - Present on Arrival Any Indicators Present on Arrival: No History of DVT/PE: No History of Uncontrolled Diabetes: No Urinary Catheter: No History of Decub. Ulcer: No History Surgical Site Infection Following: None - Disposition Have Diagnosis and Disposition been Completed?: Yes Diagnosis: Abdominal pain, Urinary tract infection, Ovarian cyst Disposition: HOME/ ROUTINE Disposition Time: 00:00 Patient Plan: Discharge Patient Problems: Current Active Problems Problem Status Onset Abdominal pain Acute Ovarian cyst Acute Urinary tract infection Acute Condition: GOOD Discharge Instructions (ExitCare): Urinary Tract Infections in Adults, Ovarian Cysts, Acute Abdomen (Belly Pain), Adult (DC) Additional Instructions: Motrin every 6 hours as needed for pain Pepcid one tablet daily One capsule twice daily 7 days Follow up with primary care physician within the next 2 days Follow-up with her web analytics developer within the next 2 days Return immediately if symptoms worsen persist or if new symptoms develop: High fevers, increasing pain, vomiting, diarrhea or any other concerning symptoms develop Prescriptions: Cephalexin [Keflex] 500 mg PO BID #14 capsule Famotidine [Pepcid] 20 mg PO DAILY #30 tab Referrals: Betty Mcfarland MD [Primary Care Provider] - Follow up with primary Kika Espinosa MD [Staff Provider] - [facility] - Follow up with primary Forms: [employer] ([place]), WORK NOTE
--- NOTE | 2017-07-17 20:49 | CT ---
EXAM: CT Abdomen and Pelvis With Intravenous Contrast EXAM DATE/TIME: 07/17/2017 5:39 PM CLINICAL HISTORY: The patient age is 21 years old and is female; Pain; Abdominal pain and other: Back; Generalized; Additional info: Abd pain Facility exam id and description: Ct abdpelciv abd pelvis iv contrast only TECHNIQUE: Axial computed tomography images of the abdomen and pelvis with intravenous contrast. All CT scans at this facility use one or more dose reduction techniques, viz.: automated exposure control; ma/kV adjustment per patient size (including targeted exams where dose is matched to indication; i.e. head); or iterative reconstruction technique. Coronal and sagittal reformatted images were created and reviewed. CONTRAST: 95 mL of OMNIPAQUE 350 administered intravenously. COMPARISON: No relevant prior studies available. FINDINGS: Lung bases: No consolidation. ABDOMEN: Liver: No mass. Gallbladder and bile ducts: No calcified stones. No ductal dilation. Pancreas: Normal contour, without acute peripancreatic stranding. Spleen: No splenomegaly. Adrenals: No mass. Kidneys and ureters: There is left renal pelviectasis, with mild dilatation of the proximal left ureter. No obstructing calculus is visualized within the proximal left ureter. Evaluation for calculi is limited by the presence of intravenous contrast. Stomach and bowel: There is gaseous and fecal distention of the rectum. Evaluation of bowel is limited by the absence of oral contrast. Air-fluid levels are identified within small bowel loops, without significant distention. Appendix: No findings to suggest acute appendicitis. PELVIS: Bladder: No mass. Reproductive: Within the right ovary, there is a 1.7 x 1.3 cm hypodense probable cyst with internal septation. There is deviation of the uterus to the left. Hypodense probable follicles are seen within the bilateral ovaries. ABDOMEN and PELVIS: Intraperitoneal space: There is a small amount of free fluid within the pelvis. Bones/joints: There is mild levoscoliosis of the lower thoracic and lumbar spine. Vasculature: No abdominal aortic aneurysm. Lymph nodes: No enlarged lymph nodes. IMPRESSION: 1. There is left renal pelviectasis, with mild dilatation of the proximal left ureter. 2. There is a small amount of free fluid within the pelvis. 3. Within the right ovary, there is a 1.7 x 1.3 cm hypodense probable cyst with internal septation. This can be further evaluated with ultrasound. 4. There is gaseous and fecal distention of the rectum. 5. Incidental/non-acute findings are described above.
--- NOTE | 2017-07-17 22:51 | US ---
EXAM: US Pelvis Complete, Transabdominal US Pelvis, Transvaginal EXAM DATE/TIME: 07/17/2017 10:14 PM CLINICAL HISTORY: The patient age is 21 years old and is female; Pain; Pelvic pain; Additional info: Abdominal pain Facility exam id and description: Us transve transvaginal TECHNIQUE: Real-time transabdominal and transvaginal pelvic ultrasound (complete) with image documentation. Transvaginal imaging was used for better evaluation of the endometrium and adnexa. COMPARISON: CT - ABD PELVIS IV CONTRAST ONLY 2017-07-17 19:17 FINDINGS: Uterus/cervix: The uterus measures 9.3 x 4.1 x 5.9 cm. The uterus is anteverted. The endometrial thickness is 1.2 cm. A small hypoechoic probable nabothian cyst is visualized at the level of the cervix. No myometrial mass. Right ovary: Within the right ovary, there is a 1.8 x 1.5-1.4 cm hypoechoic simple cyst. The right ovary measures 3.5 x 2.6 x 3.8 cm. Additional hypoechoic follicles are visualized within the right ovary. There is physiologic blood flow within the right ovary, without evidence of torsion. Left ovary: The left ovary measures 3.6 x 2.6 x 3.8 cm. There is physiologic blood flow within the left ovary, without evidence of torsion. Multiple hypoechoic follicles are visualized within the left ovary. Free fluid: There is a small amount of free fluid within the pelvis. Bladder: Suboptimal evaluation. IMPRESSION: 1. Within the right ovary, there is a 1.8 x 1.5-1.4 cm hypoechoic simple cyst. 2. There is a small amount of free fluid within the pelvis. 3. A small probable nabothian cyst is visualized at the level of the cervix.
[2017-07-18 00:25] VITALS: BP 112/78; PULSE 72; TEMP 98.1
== END 2017-07-18 00:24 | disposition home or self-care (01) ==
LOC: ED 16:27
DX: N39.0 Urinary tract infection, site not specified (principal); N83.201 Unspecified ovarian cyst, right side
CPT/HCPCS: 74177; 76830; 80053; 81001; 83690; 85025; 87086; 96361; 96374; 96375; 99284; J1885; J2405; J7040; Q9967

== ENCOUNTER 2017-10-12 22:03 | Emergency (ER) | payer MEDICAID ==
[2017-10-12 22:04] VITALS: BMI 21.4
--- NOTE | 2017-10-12 22:57 | ED PDOC ---
Arrival/HPI - General Chief Complaint: Back Pain Time Seen by Provider: 10/12/17 22:06 Historian: Patient - History of Present Illness Narrative History of Present Illness (Text): 10/12/17 22:54 21 year old female, whose past medical history includes ovarian cyst, presents to the emergency department with complaints of urinary frequency, dysuria at times with some lower abdominal discomfort which she had intermittently for the past month. Also with some right flank discomfort at times. Patient states she has a history of ovarian cysts with similar symptoms. Patient denies any fever, chills, nausea, vomiting, diarrhea, headache, dizziness, or any other complaints. PMD: Dr. Mcfarland Time/Duration: Other (1 day) Symptom Course: Unchanged Activities at Onset: Light Context: Home Past Medical History - Provider Review Nursing Documentation Reviewed: Yes - Past History Past History: Non-Contributing - Infectious Disease Hx of Infectious Diseases: None - Cardiac Hx Cardiac Disorders: Yes Hx Hypotension: Yes - Pulmonary Hx Respiratory Disorders: No - Neurological Hx Neurological Disorder: No - HEENT Hx HEENT Disorder: No - Renal Hx Renal Disorder: Yes Hx Pyelonephritis: Yes - Endocrine/Metabolic Hx Endocrine Disorders: No - Hematological/Oncological Hx Blood Disorders: Yes Hx Anemia: Yes Hx Sickle Cell Trait: Yes - Integumentary Hx Dermatological Disorder: No - Musculoskeletal/Rheumatological Hx Musculoskeletal Disorders: No - Gastrointestinal Hx Gastrointestinal Disorders: Yes Hx Vomiting: Yes - Genitourinary/Gynecological Hx Genitourinary Disorders: Yes Hx Urinary Tract Infection: Yes - Psychiatric Hx Psychophysiologic Disorder: No Hx Substance Use: No - Anesthesia Hx Anesthesia: No Family/Social History - Physician Review Nursing Documentation Reviewed: Yes Family/Social History: No Known Family HX Smoking Status: Never Smoked Hx Alcohol Use: Yes Hx Substance Use: No Allergies/Home Meds Allergies/Adverse Reactions: Allergies guaifenesin [From Robitussin] Allergy (Verified 10/12/17 22:31) RASH Review of Systems - Physician Review All systems were reviewed & negative as marked: Yes - Review of Systems Constitutional: absent: Fevers, Other (Chills) Gastrointestinal: Abdominal Pain (Lower abdominal discomfort and right flank pain). absent: Diarrhea, Nausea, Vomiting Genitourinary Female: Dysuria, Frequency Neurological: absent: Headache, Dizziness Physical Exam Vital Signs Reviewed: Yes Vital Signs Temp Pulse Resp BP Pulse Ox 10/13/17 03:24 98.2 F 68 17 115/72 98 10/13/17 02:00 60 17 110/78 98 10/12/17 22:23 98.4 F 109 H 18 102/75 99 Temperature: Afebrile Blood Pressure: Normal Pulse: Tachycardic Respiratory Rate: Normal Appearance: Positive for: Well-Appearing, Non-Toxic, Comfortable Pain Distress: None Mental Status: Positive for: Alert and Oriented X 3 - Systems Exam Head: Present: Atraumatic, Normocephalic Pupils: Present: PERRL Extroacular Muscles: Present: EOMI Conjunctiva: Present: Normal Mouth: Present: Moist Mucous Membranes Neck: Present: Normal Range of Motion Respiratory/Chest: Present: Clear to Auscultation, Good Air Exchange. No: Respiratory Distress, Accessory Muscle Use Cardiovascular: Present: Regular Rate and Rhythm, Normal S1, S2. No: Murmurs Abdomen: No: Tenderness, Distention, Peritoneal Signs, Rebound, Guarding Back: Present: Normal Inspection. No: CVA Tenderness Upper Extremity: Present: Normal Inspection. No: Cyanosis, Edema Lower Extremity: Present: Normal Inspection. No: Edema Neurological: Present: GCS=15, CN II-XII Intact, Speech Normal Skin: Present: Warm, Dry, Normal Color. No: Rashes Psychiatric: Present: Alert, Oriented x 3, Normal Insight, Normal Concentration Medical Decision Making ED Course and Treatment: 10/12/17 23:05 Impression: 21 year old female presents complaining of urinary frequency, dysuria at times with some lower abdominal discomfort which she had intermittently for the past month. pt also complaining of some right flank discomfort at times. Plan: -- Labs -- IV Fluids -- HCG Qualit urine, Urinalysis -- Transvaginal US -- CT Abd & Pelvis w/ IV contrast -- Chest X-Ray -- Reassess and disposition Prior Visits: Notes and results from previous visits were reviewed. On 07/17/17 patient came in complaining of lower abdominal pain associated with nausea and vomiting that began this morning. Patient was discharged. Progress Notes: EXAM: US Pelvis, Transvaginal Dictated and Authenticated by: Evaristo Cline MD 10/13/2017 12:34 AM IMPRESSION: 1. There is a small volume of fluid in the pelvis. 2. Nabothian cysts in the cervix. 10/13/17 02:17 CXR Impression: As read by me, no acute process EXAM: CT Abdomen and Pelvis With Intravenous Contrast Dictated and Authenticated by: Tawanna Purvis MD 10/13/2017 2:51 AM IMPRESSION: Involuting right ovarian follicle. No evidence of acute appendicitis. No new findings compared with 07/17/17. 10/13/17 03:11 On reevaluation the patient feels better and is in no acute distress. I have discussed the results and plan with the patient, who expresses understanding. Patient given the opportunity to ask question, all questions were answered and there is agreement with the plan to discharge the patient home. Patient is stable for discharge. Patient was instructed to follow up with physician/clinic or return if symptoms persist/worsen or new concerning symptoms arise. - Lab Interpretations Lab Results: 10/12/17 23:12 10/12/17 23:12 Lab Results 10/12/17 23:12: WBC 7.3, RBC 4.52, Hgb 12.8, Hct 36.1, MCV 79.9 L, MCH 28.3, MCHC 35.5, RDW 13.2, Plt Count 223, MPV 10.9 10/12/17 23:12: Sodium 142, Potassium 3.9, Chloride 104, Carbon Dioxide 25, Anion Gap 17, BUN 15, Creatinine 0.8, Est GFR ( Amer) > 60, Est GFR (Non- Af Amer) > 60, Random Glucose 86, Calcium 9.0, Total Bilirubin 0.7, AST 22, ALT 28, Alkaline Phosphatase 50, Total Protein 7.6, Albumin 4.8, Globulin 2.8, Albumin/Globulin Ratio 1.7, Lipase 158 10/12/17 23:12: Urine Color Yellow, Urine Appearance Sl cloudy, Urine pH 6.0, Ur Specific [place] 1.020, Urine Protein Trace H, Urine Glucose (UA) Negative, Urine Ketones Negative, Urine Blood Negative, Urine Nitrate Negative, Urine Bilirubin Negative, Urine Urobilinogen 0.2, Ur Leukocyte Esterase Moderate H, Urine RBC 0 - 2, Urine WBC 5 - 10, Ur Epithelial Cells 4 - 5, Urine Bacteria Mod , Urine HCG, Qual Negative I have reviewed the lab results: Yes - RAD Interpretation Radiology Orders: 10/12/17 22:54 TRANSVAGINAL [US] Stat 10/13/17 00:51 CHEST PORTABLE [RAD] Stat 10/13/17 00:52 ABD & PELVIS IV CONTRAST ONLY [CT] Stat - Medication Orders Current Medication Orders: Discontinued Medications Cephalexin Monohydrate (Keflex) 500 mg PO ONCE STA PRN Reason: Protocol Stop: 10/13/17 03:15 Last Admin: 10/13/17 03:23 Dose: 500 mg Sodium Chloride (Sodium Chloride 0.9%) 1,000 mls @ 100 mls/hr IV .Q10H MI Last Admin: 10/12/17 23:34 Dose: 100 mls/hr eMAR Start Stop Document 10/12/17 23:34 IT (Rec: 10/12/17 23:35 IT [id number]) Intravenous Solution Start Date 10/12/17 Start Time 23:35 End Date 10/12/17 End time 00:35 Total Infusion Time -1380 Ketorolac Tromethamine (Toradol) 30 mg IVP ONCE ONE Stop: 10/13/17 00:29 Last Admin: 10/13/17 03:23 Dose: 30 mg MAR Pain Assessment Document 10/13/17 03:23 IT (Rec: 10/13/17 03:23 IT [id number]) Pain Reassessment Is this a pain reassessment? No Sleep Is patient sleeping during reassessment? No Presence of Pain Presence of Pain Yes IVP Administration Document 10/13/17 03:23 IT (Rec: 10/13/17 03:23 IT [id number]) Charges for Administration # of IVP Administrations 1 - Scribe Statement The provider has reviewed the documentation as recorded by the Dustin Jang Provider Scribe Attestation: All medical record entries made by the Dustin were at my direction and personally dictated by me. I have reviewed the chart and agree that the record accurately reflects my personal performance of the history, physical exam, medical decision making, and the department course for this patient. I have also personally directed, reviewed, and agree with the discharge instructions and disposition. Disposition/Present on Arrival - Present on Arrival Any Indicators Present on Arrival: No History of DVT/PE: No History of Uncontrolled Diabetes: No Urinary Catheter: No History of Decub. Ulcer: No History Surgical Site Infection Following: None - Disposition Have Diagnosis and Disposition been Completed?: Yes Diagnosis: UTI (urinary tract infection) Disposition: HOME/ ROUTINE Disposition Time: 03:11 Patient Plan: Discharge Condition: GOOD Discharge Instructions (ExitCare): Urinary Tract Infection, Adult (DC) Additional Instructions: Drink plenty of liquids/take meds as prescribed/follow up with your doctor this week Prescriptions: Cephalexin [cephalexin] 500 mg PO BID #14 cap Naproxen [Naprosyn Tab] 375 mg PO BID PRN #14 tab PRN Reason: Pain, Moderate (4-7) Referrals: Betty Mcfarland MD [Primary Care Provider] - Follow up with primary Forms: [employer] ([employer])
[2017-10-12] MEDS ORDERED: Sodium Chloride 0.9% 1,000 ML IV SCH (23:00)
[2017-10-12 23:34] LABS: ALB/GLOB RATIO 1.7 (1.1-1.8); ALBUMIN 4.8 g/dL (3.0-4.8); ALT/SGPT 28 U/L (7-56); AST/SGOT 22 U/L (14-36); BLOOD UREA NITROGEN 15 mg/dL (7-21); GFR AFRICAN-AMERICAN > 60; GFR NON-AFRICAN AMERICAN > 60; LIPASE 158 U/L (23-300)
[2017-10-12 23:38] LABS: URINE BILIRUBIN NEGATIVE (NEGATIVE); URINE BLOOD NEGATIVE (NEGATIVE); URINE GLUCOSE (UA) NEGATIVE (NEGATIVE); URINE LEUKOCYTE ESTERASE MODERATE Leu/uL (NEGATIVE); URINE PROTEIN TRACE mg/dL (<30 mg/dL); URINE UROBILINOGEN 0.2 E.U./dL (<1 E.U./dL)
[2017-10-12 23:39] LABS: HEMOGLOBIN 12.8 g/dL (12.0-16.0); MEAN CELL VOLUME 79.9 fl (80.0-105.0); MEAN CORPUSCULAR HEMOGLOBIN 28.3 pg (25.0-35.0); MEAN CORPUSCULAR HGB CONC 35.5 g/dl (31.0-37.0); MEAN PLATELET VOLUME 10.9 fl (7.0-11.0); RBC 4.52 10^6/uL (3.5-6.1); RED CELL DISTRIBUTION WIDTH 13.2 % (11.5-14.5); WHITE BLOOD COUNT 7.3 10^3/ul (4.5-11.0)
[2017-10-12 23:47] LABS: HCG,QUALITATIVE URINE NEGATIVE (NEGATIVE)
[2017-10-12 23:48] LABS: URINE APPEARANCE SL CLOUDY (CLEAR); URINE COLOR YELLOW (YELLOW)
[2017-10-12 23:57] LABS: URINE BACTERIA MOD (NEG); URINE RBC 0 - 2 /hpf (0-2)
[2017-10-13] MEDS ORDERED: Iohexol 350 MG/100 ML VIAL ONE (00:58)
[2017-10-13 02:06] VITALS: RESP 17; O2SAT 98
[2017-10-13 03:25] VITALS: BP 115/72; PULSE 68; TEMP 98.2
--- NOTE | 2017-10-13 09:02 | RAD ---
Date of service: 10/13/2017 HISTORY: pain COMPARISON: No prior. FINDINGS: LUNGS: No active pulmonary disease. PLEURA: No significant pleural effusion identified, no pneumothorax apparent. CARDIOVASCULAR: Normal. OSSEOUS STRUCTURES: No significant abnormalities. VISUALIZED UPPER ABDOMEN: Normal. OTHER FINDINGS: None. IMPRESSION: No active disease.
--- NOTE | 2017-10-13 11:16 | CT ---
Date of service: 10/13/2017 PROCEDURE: CT Abdomen and Pelvis with contrast HISTORY: abdominal pain COMPARISON: None. TECHNIQUE: Contrast dose: 100 cc of Omni 350 Radiation dose: Total exam DLP = 194 mGy-cm. This CT exam was performed using one or more of the following dose reduction techniques: Automated exposure control, adjustment of the mA and/or kV according to patient size, and/or use of iterative reconstruction technique. FINDINGS: LOWER THORAX: Unremarkable. LIVER: Unremarkable. No gross lesion or ductal dilatation. GALLBLADDER AND BILE DUCTS: Unremarkable. PANCREAS: Unremarkable. No gross lesion or ductal dilatation. SPLEEN: Unremarkable. ADRENALS: Unremarkable. No mass. KIDNEYS AND URETERS: Unremarkable. No hydronephrosis. No solid mass. VASCULATURE: Unremarkable. No aortic aneurysm. BOWEL: Unremarkable. No obstruction. No gross mural thickening. APPENDIX: Normal appendix. PERITONEUM: Unremarkable. No free fluid. No free air. LYMPH NODES: Unremarkable. No enlarged lymph nodes. BLADDER: Unremarkable. REPRODUCTIVE: There is a thick-walled involuting right ovarian cyst measuring 22 mm in diameter. There is a small amount of fluid in the cul-de-sac BONES: No acute fracture. OTHER FINDINGS: The report concurs with the preliminary [facility] report IMPRESSION: There is a thick-walled involuting right ovarian cyst measuring 22 mm in diameter. There is a small amount of fluid in the cul-de-sac No evidence of appendicitis
--- NOTE | 2017-10-14 10:39 | US ---
Date of service: 10/14/2017 HISTORY: right testicular pain TECHNIQUE: Realtime sonography through the scrotum with color and doppler flow. COMPARISON: None Available. FINDINGS: RIGHT TESTICLE: Measures 5.2 x 2.4 x 3.5 cm. Normal echotexture and flow. RIGHT EPIDIDYMIS: Epididymal head measures 0.1 x 0.8 x 1.5 cm. Grossly unremarkable appearance with normal flow. LEFT TESTICLE: Measures 4.8 x 2.2 x 3.5 cm. Normal echotexture and flow. LEFT EPIDIDYMIS: Epididymal head measures 0.8 x 0.7 x 1.2 cm. . Normal flow. Small cyst possibly representing a spermatocele measuring approximately 4 mm x 3 mm x 5 mm HYDROCELE: Bilateral hydroceles VARICOCELE: Right-sided varicocele OTHER FINDINGS: None. IMPRESSION: Bilateral hydroceles. . Right-sided varicocele Small cyst or spermatocele left epididymis. The the Both testicles exhibit arterial flow.
== END 2017-10-13 03:25 | disposition home or self-care (01) ==
LOC: ED 22:03
DX: N39.0 Urinary tract infection, site not specified (principal); N83.201 Unspecified ovarian cyst, right side
CPT/HCPCS: 71045; 74177; 76830; 80053; 81001; 83690; 84703; 85027; 87086; 96374; 99283; J1885; J7030; Q9967

== ENCOUNTER 2017-10-30 19:11 | Emergency (ER) | payer MEDICAID ==
[2017-10-30 19:42] VITALS: BP 108/77; PULSE 81; TEMP 97.8; O2SAT 98; BMI 20.2
--- NOTE | 2017-10-30 20:05 | ED PDOC ---
Arrival/HPI - General Chief Complaint: Abdominal Pain Time Seen by Provider: 10/30/17 19:59 Historian: Patient - History of Present Illness Narrative History of Present Illness (Text): 21 year old F c Past medical history ovarian cysts, anemia, sickle cell trait p /w lower abdominal pain x 2 weeks. Patient states she was here 2 weeks ago for the same. During that visit, had US which showed free fluid and CT which showed involuting ovarian follicle and no appendicitis. She states she finished naproxen that she was given during that visit and is out of pain medication. States pain has gotten worse and wishes to have it re-evaluated. Denies fever, chills, chest pain, nausea, vomiting, diarrhea. Time/Duration: > week Symptom Course: Worsening Context: Home Past Medical History - Provider Review Nursing Documentation Reviewed: Yes - Past History Past History: Non-Contributing - Infectious Disease Hx of Infectious Diseases: None - Cardiac Hx Cardiac Disorders: No - Pulmonary Hx Respiratory Disorders: No - Neurological Hx Neurological Disorder: No - HEENT Hx HEENT Disorder: No - Renal Hx Renal Disorder: No - Endocrine/Metabolic Hx Endocrine Disorders: No - Hematological/Oncological Hx Blood Disorders: Yes Hx Anemia: Yes Hx Sickle Cell Trait: Yes - Integumentary Hx Dermatological Disorder: No - Musculoskeletal/Rheumatological Hx Musculoskeletal Disorders: No - Gastrointestinal Hx Gastrointestinal Disorders: No - Genitourinary/Gynecological Hx Genitourinary Disorders: Yes Hx Urinary Tract Infection: Yes - Psychiatric Hx Psychophysiologic Disorder: No Hx Substance Use: No - Anesthesia Hx Anesthesia: No Family/Social History - Physician Review Nursing Documentation Reviewed: Yes Family/Social History: No Known Family HX Smoking Status: Never Smoked Hx Alcohol Use: Yes Frequency of alcohol use: Socially Hx Substance Use: No Allergies/Home Meds Allergies/Adverse Reactions: Allergies guaifenesin [From Robitussin] Allergy (Verified 10/30/17 19:31) RASH Review of Systems - Physician Review All systems were reviewed & negative as marked: Yes - Review of Systems Constitutional: absent: Fevers Cardiovascular: absent: Chest Pain Physical Exam - Physical Exam Narrative Physical Exam (Text): Constitutional: No acute distress. Head: Normocephalic. Atraumatic. Eyes: PERRL. ENT: Moist mucous membranes. Neck: Supple. Cardiovascular: Regular rate. Chest: No tenderness. Respiratory: Clear to auscultation bilaterally. GI: Lower abdominal tenderness without guarding or rebound. Back: No CVA tenderness. Musculoskeletal: No tenderness or swelling of extremities. Skin: No rash. Neurologic: Alert, no focal deficit. Vital Signs Reviewed: Yes Vital Signs Temp Pulse Resp BP Pulse Ox 10/30/17 19:37 97.8 F 81 18 108/77 98 Temperature: Afebrile Blood Pressure: Normal Pulse: Regular Respiratory Rate: Normal Mental Status: Positive for: Alert and Oriented X 3 Medical Decision Making ED Course and Treatment: Impression: Patient is a 21 year old female who is complaining of ongoing abdominal pain for the past 2 weeks, which has recently worsened. Plan: --Labs --Urinalysis --US to re-evaluate for cyst vs torsion. Toradol for pain. -- Reassess and disposition Prior Visits: Notes and results from previous visits were reviewed. Patient was last seen in the emergency department on 10/12/17 complaining of back pain. She was diagnosed with UTI, treated, and discharged. Progress Notes: 10/30/17 21:20 FINDINGS: Uterus/cervix: The endometrial stripe is 0.8 cm. Cervical length is 3.1 cm. Nabothian cysts present. No myometrial mass. Right ovary: Right ovary measures 2.2 x 1.8 x 1.4 cm 1.2 cm right ovarian Cyst/ follicle. Normal blood flow. Left ovary: Left ovary measures 2.5 x 1.2 x 1.2 cm. 0.6 cm left ovarian follicle. Normal blood flow. Free fluid: No free fluid. IMPRESSION: No acute findings. Discharged home, f/u OBGYN, return to Emergency department for worsening pain, fever, vomiting, or any other problem. - Lab Interpretations Lab Results: 10/30/17 21:10 10/30/17 21:10 Lab Results 10/30/17 21:10: WBC 6.1, RBC 4.48, Hgb 12.3, Hct 36.1, MCV 80.6, MCH 27.5, MCHC 34.1, RDW 13.2, Plt Count 234, MPV 10.9, Gran % 62.3, Lymph % (Auto) 31.4, [place] % (Auto) 4.1, Eos % (Auto) 1.5, Baso % (Auto) 0.7, Gran # 3.83, Lymph # (Auto) 1.9, [place] # (Auto) 0.3, Eos # (Auto) 0.1, Baso # (Auto) 0.04 10/30/17 21:10: Sodium 143, Potassium 3.9, Chloride 104, Carbon Dioxide 25, Anion Gap 17, BUN 11, Creatinine 0.7, Est GFR ( Amer) > 60, Est GFR (Non- Af Amer) > 60, Random Glucose 93, Calcium 9.6, Total Bilirubin 0.4, AST 29, ALT 22, Alkaline Phosphatase 74, Total Protein 7.7, Albumin 5.0 H, Globulin 2.7, Albumin/Globulin Ratio 1.8, Lipase 119 10/30/17 20:45: Urine Color Light yellow, Urine Appearance Clear, Urine pH 6.0, Ur Specific [place] 1.015, Urine Protein Negative, Urine Glucose (UA) Negative, Urine Ketones Negative, Urine Blood Negative, Urine Nitrate Negative, Urine Bilirubin Negative, Urine Urobilinogen 0.2, Ur Leukocyte Esterase Trace H, Urine RBC 0 - 2, Urine WBC 2 - 5, Ur Epithelial Cells 6 - 8, Urine Bacteria Small, Urine HCG, Qual Negative I have reviewed the lab results: Yes - RAD Interpretation Radiology Orders: 10/30/17 20:01 TRANSVAGINAL [US] Stat Ice Cream Chef: Radiologist - Medication Orders Current Medication Orders: Discontinued Medications Ketorolac Tromethamine (Toradol) 30 mg IVP STAT STA Stop: 10/30/17 20:02 Last Admin: 10/30/17 20:13 Dose: 30 mg MAR Pain Assessment Document 10/30/17 20:13 MS (Rec: 10/30/17 20:13 [id number] Pain Reassessment Is this a pain reassessment? No Sleep Is patient sleeping during reassessment? No Presence of Pain Presence of Pain Yes Pain Scale Used Pain Scale Used Numeric Location Upper or Lower Lower Pain Location Body Site Abdomen Description Description Constant Intensity of Pain at present 6 Pain Behavior Guarding IVP Administration Document 10/30/17 20:13 MS (Rec: 10/30/17 20:13 MS [id number] Charges for Administration # of IVP Administrations 1 - Scribe Statement The provider has reviewed the documentation as recorded by the Scribluana Flaherty Provider Scribe Attestation: All medical record entries made by the Scribe were at my direction and personally dictated by me. I have reviewed the chart and agree that the record accurately reflects my personal performance of the history, physical exam, medical decision making, and the department course for this patient. I have also personally directed, reviewed, and agree with the discharge instructions and disposition. Disposition/Present on Arrival - Present on Arrival Any Indicators Present on Arrival: No History of DVT/PE: No History of Uncontrolled Diabetes: No Urinary Catheter: No History of Decub. Ulcer: No History Surgical Site Infection Following: None - Disposition Have Diagnosis and Disposition been Completed?: Yes Diagnosis: Ovarian cyst Disposition: HOME/ ROUTINE Disposition Time: 21:31 Patient Plan: Discharge Patient Problems: Current Active Problems Problem Status Onset Ovarian cyst Acute Condition: STABLE Discharge Instructions (ExitCare): Ovarian Cysts Prescriptions: Naproxen 375 mg PO BID PRN #14 tablet PRN Reason: Pain, Moderate (4-7) Referrals: Betty Mcfarland MD [Primary Care Provider] - Follow up with primary Kika Espinosa MD [Staff Provider] - Follow up with primary Forms: [employer] ([place])
[2017-10-30 20:56] LABS: URINE BILIRUBIN NEGATIVE (NEGATIVE); URINE BLOOD NEGATIVE (NEGATIVE); URINE GLUCOSE (UA) NEGATIVE (NEGATIVE); URINE LEUKOCYTE ESTERASE TRACE Leu/uL (NEGATIVE); URINE PROTEIN NEGATIVE mg/dL (<30 mg/dL); URINE UROBILINOGEN 0.2 E.U./dL (<1 E.U./dL)
[2017-10-30 21:09] LABS: URINE APPEARANCE CLEAR (CLEAR); URINE COLOR LIGHT YELLOW (YELLOW)
[2017-10-30 21:22] LABS: BASO # 0.04 K/mm3 (0.0-2.0); BASO % 0.7 % (0.0-3.0); EOS # 0.1 (0.0-0.7); EOS % 1.5 % (1.5-5.0); GRAN # 3.83 (1.4-6.5); GRAN % 62.3 % (50.0-68.0); HEMOGLOBIN 12.3 g/dL (12.0-16.0); LYMPH # 1.9 (1.2-3.4); LYMPH % 31.4 % (22.0-35.0); MEAN CELL VOLUME 80.6 fl (80.0-105.0); MEAN CORPUSCULAR HEMOGLOBIN 27.5 pg (25.0-35.0); MEAN CORPUSCULAR HGB CONC 34.1 g/dl (31.0-37.0); MEAN PLATELET VOLUME 10.9 fl (7.0-11.0); MONO # 0.3 (0.1-0.6); MONO % 4.1 % (1.0-6.0); RBC 4.48 10^6/uL (3.5-6.1); RED CELL DISTRIBUTION WIDTH 13.2 % (11.5-14.5); WHITE BLOOD COUNT 6.1 10^3/ul (4.5-11.0)
[2017-10-30 21:26] LABS: HCG,QUALITATIVE URINE NEGATIVE (NEGATIVE); URINE BACTERIA SMALL (NEG); URINE RBC 0 - 2 /hpf (0-2)
[2017-10-30 21:28] LABS: ALB/GLOB RATIO 1.8 (1.1-1.8); ALT/SGPT 22 U/L (7-56); AST/SGOT 29 U/L (14-36); BLOOD UREA NITROGEN 11 mg/dL (7-21); CALCIUM 9.6 mg/dL (8.4-10.5); GFR AFRICAN-AMERICAN > 60; GFR NON-AFRICAN AMERICAN > 60; LIPASE 119 U/L (23-300)
[2017-10-30 22:58] VITALS: RESP 16
--- NOTE | 2017-10-31 10:10 | US ---
History: Pelvic pain Findings: The uterus measures 6.7 x 3.4 x 4.7 cm. Endometrium measures 8 mm. The right ovary measures 2.2 x 1.9 x 1.5 cm Left ovary measures 2.5 x 1.2 x 1.2 cm. There is no free fluid in the pelvis. Impression: Unremarkable pelvic ultrasound..
== END 2017-10-30 22:57 | disposition home or self-care (01) ==
LOC: ED 19:11
DX: N83.201 Unspecified ovarian cyst, right side (principal)
CPT/HCPCS: 76830; 80053; 81001; 83690; 84703; 85025; 87086; 96374; 99283; J1885

== ENCOUNTER 2017-12-13 11:23 | Emergency (ER) | payer MEDICAID ==
[2017-12-13 11:24] VITALS: BMI 20.2
[2017-12-13] MEDS ORDERED: Sodium Chloride 0.9% 1,000 ML IV STA (11:53)
[2017-12-13 12:06] VITALS: RESP 18; O2SAT 100
[2017-12-13 12:15] VITALS: TEMP 98.6
--- NOTE | 2017-12-13 12:17 | ED PDOC ---
Arrival/HPI - General Chief Complaint: Abdominal Pain Time Seen by Provider: 12/13/17 11:26 Historian: Patient - History of Present Illness Narrative History of Present Illness (Text): 12/13/17 11:45 22 year old female, whose past medical history includes anemia, renal stone and sickle cell trait, who presents to the Emergency department complaining of aching right flank pain and right pelvic pain since 4 days ago, on 12/09/17, worse 2 days ago. Patient notes some vomiting, which started 3 days ago. Patient notes pain became worse 2 days ago on 12/11. Patient states that she started to have diarrhea yesterday. Patient believes it is her cyst since she has had similar symptoms in the past and was told it was her cyst. Patient does not smoke and occasionally consumes EtOH. Patient denies any fever, chills, chest pain, shortness of breath, or any other complaints. PMD: Dr. Mcfarland Time/Duration: > week (onset of right flank pain/right pelvic pain 4 days ago) Symptom Onset: Sudden Symptom Course: Unchanged Quality: Aching Activities at Onset: Light Past Medical History - Provider Review Nursing Documentation Reviewed: Yes - Past History Past History: Non-Contributing - Infectious Disease Hx of Infectious Diseases: None - Cardiac Hx Cardiac Disorders: No - Pulmonary Hx Respiratory Disorders: No - Neurological Hx Neurological Disorder: No - HEENT Hx HEENT Disorder: No - Renal Hx Renal Disorder: No - Endocrine/Metabolic Hx Endocrine Disorders: No - Hematological/Oncological Hx Blood Disorders: Yes Hx Anemia: Yes Hx Sickle Cell Trait: Yes - Integumentary Hx Dermatological Disorder: No - Musculoskeletal/Rheumatological Hx Musculoskeletal Disorders: No - Gastrointestinal Hx Gastrointestinal Disorders: No - Genitourinary/Gynecological Hx Genitourinary Disorders: Yes Hx Urinary Tract Infection: Yes - Psychiatric Hx Psychophysiologic Disorder: No Hx Substance Use: No - Anesthesia Hx Anesthesia: No Hx Anesthesia Reactions: No Hx Malignant Hyperthermia: No Family/Social History - Physician Review Nursing Documentation Reviewed: Yes Family/Social History: No Known Family HX Smoking Status: Never Smoked Hx Alcohol Use: Yes Hx Substance Use: No Allergies/Home Meds Allergies/Adverse Reactions: Allergies guaifenesin [From Robitussin] Allergy (Verified 10/30/17 19:31) RASH Review of Systems - Physician Review All systems were reviewed & negative as marked: Yes - Review of Systems Constitutional: Normal. absent: Fevers, Night Sweats Eyes: Normal ENT: Normal Respiratory: Normal. absent: SOB Cardiovascular: Normal. absent: Chest Pain Gastrointestinal: Normal, Diarrhea (Patient notes diarrhea started yesterday), Vomiting (vomiting onset 3 days ago) Genitourinary Female: Normal Musculoskeletal: Back Pain (right flank pain ). absent: Normal Skin: Normal Neurological: Normal Endocrine: Normal Hemo/Lymphatic: Normal Psychiatric: Normal Physical Exam Vital Signs Reviewed: Yes Vital Signs Temp Pulse Resp BP Pulse Ox 12/13/17 14:36 82 18 108/65 100 12/13/17 12:03 98.6 F 88 18 101/53 L 100 Temperature: Afebrile Blood Pressure: Hypotensive Pulse: Regular Respiratory Rate: Normal Appearance: Positive for: Well-Appearing, Non-Toxic, Other (Well hydrated. ) Pain Distress: Mild Mental Status: Positive for: Alert and Oriented X 3 - Systems Exam Head: Present: Atraumatic, Normocephalic Pupils: Present: PERRL Extroacular Muscles: Present: EOMI Conjunctiva: Present: Normal Mouth: Present: Moist Mucous Membranes Neck: Present: Normal Range of Motion Respiratory/Chest: Present: Clear to Auscultation, Good Air Exchange. No: Respiratory Distress, Accessory Muscle Use Cardiovascular: Present: Regular Rate and Rhythm, Normal S1, S2. No: Murmurs Abdomen: Present: Tenderness (some tenderness in right lower quadrant. belly tender, right flank. ). No: Distention, Peritoneal Signs, Rebound, Guarding Back: Present: Normal Inspection Upper Extremity: Present: Normal Inspection. No: Cyanosis, Edema Lower Extremity: Present: Normal Inspection. No: Edema Neurological: Present: GCS=15, CN II-XII Intact, Speech Normal Skin: Present: Warm, Dry, Normal Color. No: Rashes Psychiatric: Present: Alert, Oriented x 3, Normal Insight, Normal Concentration Medical Decision Making ED Course and Treatment: 12/13/17 11:45 Impression: 22 year old female presents to the Emergency department for right flank pain and right pelvic pain for the past 4 days since 12/09/17. Differential Diagnosis included but are not limited to: right flank pain, r/o renal stone Plan: -- CT of Abdomen/Pelvis w/o PO or IV contrast -- Labs -- Reglan 10 mg IVP -- IV fluids -- Urinalysis -- Reassess and disposition Prior Visits: Notes and results from previous visits were reviewed. Patient was last seen in the Emergency department on 10/30/17 for lower abdominal pain for 2 weeks. Patient was discharged home with diagnosis of ovarian cyst, and directed to follow up with PMD. Prior to that visit, on 10/12/17 for complaints of urinary frequency, dysuria at times with lower abdominal discomfort, and some right flank discomfort. Patient was discharged home with diagnosis of Urinary tract infection, given instructions for care, and directed to follow up with PMD. Progress Notes: CT of Abdomen/Pelvis reviewed by radiologist, shows: Dictator : Addy Nielson MD Report Date : 12/13/2017 13:12:03 FINDINGS: LOWER THORAX: Unremarkable. LIVER: Unremarkable. No gross lesion or ductal dilatation. GALLBLADDER AND BILE DUCTS: Unremarkable. PANCREAS: Unremarkable. No gross lesion or ductal dilatation. SPLEEN: Unremarkable. ADRENALS: Unremarkable. No mass. KIDNEYS AND URETERS: Unremarkable. No hydronephrosis. No solid mass. VASCULATURE: Unremarkable. No aortic aneurysm. BOWEL: Unremarkable. No obstruction. No gross mural thickening. APPENDIX: Unremarkable. Normal appendix. PERITONEUM: Unremarkable. No free fluid. No free air. LYMPH NODES: Unremarkable. No enlarged lymph nodes. BLADDER: Unremarkable. REPRODUCTIVE: Unremarkable. BONES: No acute fracture. OTHER FINDINGS: None. IMPRESSION: No acute findings. No evidence of urolithiasis - Lab Interpretations Lab Results: 12/13/17 12:30 12/13/17 12:30 Lab Results 12/13/17 14:08: Urine Color Yellow, Urine Appearance Clear, Urine pH 6.0, Ur Specific [place] 1.015, Urine Protein Trace H, Urine Glucose (UA) Negative, Urine Ketones Negative, Urine Blood Trace-intact H, Urine Nitrate Negative, Urine Bilirubin Negative, Urine Urobilinogen 0.2, Ur Leukocyte Esterase Negative , Urine RBC 2 - 5, Urine WBC 0 - 2, Ur Epithelial Cells 6 - 8, Urine Bacteria Many 12/13/17 12:30: Sodium 138, Potassium 4.0, Chloride 103, Carbon Dioxide 24, Anion Gap 15, BUN 9, Creatinine 0.7, Est GFR ( Amer) > 60, Est GFR (Non- Af Amer) > 60, Random Glucose 93, Calcium 9.1, Total Bilirubin 0.8, AST 23, ALT 19, Alkaline Phosphatase 63, Total Protein 7.9, Albumin 4.8, Globulin 3.1, Albumin/Globulin Ratio 1.5 12/13/17 12:30: WBC 11.2 H D, RBC 4.72, Hgb 13.2, Hct 38.8, MCV 82.2, MCH 28.0, MCHC 34.0, RDW 13.4, Plt Count 201, MPV 10.6, Gran % 85.2 H, Lymph % (Auto) 7.6 L, Bacon % (Auto) 6.1 H, Eos % (Auto) 0.8 L, Baso % (Auto) 0.3, Gran # 9.55 H, Lymph # (Auto) 0.9 L, [place] # (Auto) 0.7 H, Eos # (Auto) 0.1, Baso # (Auto) 0.03 - RAD Interpretation Radiology Orders: 12/13/17 11:53 ABD & PELVIS W/O PO OR IV CONT [CT] Stat Battery Mechanic: Radiologist - Medication Orders Current Medication Orders: Discontinued Medications Sodium Chloride (Sodium Chloride 0.9%) 1,000 mls @ 1,000 mls/hr IV .Q1H STA Stop: 12/13/17 12:52 Last Admin: 12/13/17 12:20 Dose: 1,000 mls/hr eMAR Start Stop Document 12/13/17 12:20 EQ (Rec: 12/13/17 12:21 EQ [id number]) Intravenous Solution Start Date 12/13/17 Start Time 12:21 Ketorolac Tromethamine (Toradol) 30 mg IVP STAT STA Stop: 12/13/17 14:08 Last Admin: 12/13/17 14:31 Dose: 30 mg MAR Pain Assessment Document 12/13/17 14:31 EQ (Rec: 12/13/17 14:32 EQ [id number]) Pain Reassessment Is this a pain reassessment? No Sleep Is patient sleeping during reassessment? No Presence of Pain Presence of Pain Yes IVP Administration Document 12/13/17 14:31 EQ (Rec: 12/13/17 14:32 EQ [id number]) Charges for Administration # of IVP Administrations 1 Metoclopramide HCl (Reglan) 10 mg IVP STAT STA Stop: 12/13/17 11:54 Last Admin: 12/13/17 12:18 Dose: 10 mg IVP Administration Document 12/13/17 12:18 EQ (Rec: 12/13/17 12:18 EQ [id number]) Charges for Administration # of IVP Administrations 1 - Scribe Statement The provider has reviewed the documentation as recorded by the Scribe Baylee Marie All medical record entries made by the Scribe were at my direction and personally dictated by me. I have reviewed the chart and agree that the record accurately reflects my personal performance of the history, physical exam, medical decision making, and the department course for this patient. I have also personally directed, reviewed, and agree with the discharge instructions and disposition. Disposition/Present on Arrival - Present on Arrival Any Indicators Present on Arrival: No History of DVT/PE: No History of Uncontrolled Diabetes: No Urinary Catheter: No History of Decub. Ulcer: No History Surgical Site Infection Following: None - Disposition Have Diagnosis and Disposition been Completed?: Yes Diagnosis: Right flank pain, Back pain Disposition: HOME/ ROUTINE Disposition Time: 14:45 Condition: GOOD Discharge Instructions (ExitCare): Low Back Pain in Adults, Flank Pain Prescriptions: Cyclobenzaprine [Cyclobenzaprine HCl] 10 mg PO Q8 #15 tab Ibuprofen [Motrin] 600 mg PO Q6 #20 tab Referrals: Betty Mcfarland MD [Primary Care Provider] - Follow up with primary Forms: [facility] (E[place]ian), WORK NOTE
[2017-12-13 12:45] LABS: BASO # 0.03 K/mm3 (0.0-2.0); BASO % 0.3 % (0.0-3.0); EOS # 0.1 (0.0-0.7); EOS % 0.8 % (1.5-5.0); GRAN # 9.55 (1.4-6.5); GRAN % 85.2 % (50.0-68.0); HEMOGLOBIN 13.2 g/dL (12.0-16.0); LYMPH # 0.9 (1.2-3.4); LYMPH % 7.6 % (22.0-35.0); MEAN CELL VOLUME 82.2 fl (80.0-105.0); MEAN PLATELET VOLUME 10.6 fl (7.0-11.0); MONO # 0.7 (0.1-0.6); MONO % 6.1 % (1.0-6.0); RBC 4.72 10^6/uL (3.5-6.1); RED CELL DISTRIBUTION WIDTH 13.4 % (11.5-14.5); WHITE BLOOD COUNT 11.2 10^3/ul (4.5-11.0)
[2017-12-13 12:54] LABS: ALB/GLOB RATIO 1.5 (1.1-1.8); ALBUMIN 4.8 g/dL (3.0-4.8); ALT/SGPT 19 U/L (7-56); AST/SGOT 23 U/L (14-36); BLOOD UREA NITROGEN 9 mg/dL (7-21); CALCIUM 9.1 mg/dL (8.4-10.5); GFR NON-AFRICAN AMERICAN > 60
--- NOTE | 2017-12-13 13:13 | CT ---
Date of service: 12/13/2017 PROCEDURE: CT Abdomen and Pelvis without intravenous contrast HISTORY: r/o renal stone COMPARISON: None. TECHNIQUE: Without contrast.. Contrast dose: Radiation dose: Total exam DLP = 217 mGy-cm. This CT exam was performed using one or more of the following dose reduction techniques: Automated exposure control, adjustment of the mA and/or kV according to patient size, and/or use of iterative reconstruction technique. FINDINGS: LOWER THORAX: Unremarkable. LIVER: Unremarkable. No gross lesion or ductal dilatation. GALLBLADDER AND BILE DUCTS: Unremarkable. PANCREAS: Unremarkable. No gross lesion or ductal dilatation. SPLEEN: Unremarkable. ADRENALS: Unremarkable. No mass. KIDNEYS AND URETERS: Unremarkable. No hydronephrosis. No solid mass. VASCULATURE: Unremarkable. No aortic aneurysm. BOWEL: Unremarkable. No obstruction. No gross mural thickening. APPENDIX: Unremarkable. Normal appendix. PERITONEUM: Unremarkable. No free fluid. No free air. LYMPH NODES: Unremarkable. No enlarged lymph nodes. BLADDER: Unremarkable. REPRODUCTIVE: Unremarkable. BONES: No acute fracture. OTHER FINDINGS: None. IMPRESSION: No acute findings. No evidence of urolithiasis
[2017-12-13 14:11] LABS: URINE BILIRUBIN NEGATIVE (NEGATIVE); URINE BLOOD TRACE-INTACT (NEGATIVE); URINE GLUCOSE (UA) NEGATIVE (NEGATIVE); URINE LEUKOCYTE ESTERASE NEGATIVE Leu/uL (NEGATIVE); URINE PROTEIN TRACE mg/dL (<30 mg/dL); URINE UROBILINOGEN 0.2 E.U./dL (<1 E.U./dL)
[2017-12-13 14:16] LABS: URINE APPEARANCE CLEAR (CLEAR); URINE COLOR YELLOW (YELLOW)
[2017-12-13 14:36] LABS: URINE BACTERIA MANY (NEG); URINE WBC 0 - 2 /hpf (0-6)
[2017-12-13 14:37] VITALS: BP 108/65; PULSE 82
== END 2017-12-13 14:45 | disposition home or self-care (01) ==
LOC: ED 11:23
DX: R10.9 Unspecified abdominal pain (principal); M54.5 Low back pain; D57.3 Sickle-cell trait
CPT/HCPCS: 74176; 80053; 81001; 85025; 96374; 96375; 99283; J1885; J2765; J7040

== ENCOUNTER 2018-06-19 13:30 | Outpatient (CLI) | payer MEDICAID | END 2018-06-19 13:31 | disposition home or self-care (01) | LOC: RAD 13:30 ==

== ENCOUNTER 2018-06-23 14:36 | Outpatient (CLI) | payer MEDICAID | END 2018-06-23 14:37 | disposition home or self-care (01) | LOC: RAD 14:36 ==

== ENCOUNTER 2018-06-25 07:42 | Outpatient (CLI) | payer MEDICAID | END 2018-06-25 07:43 | disposition home or self-care (01) | LOC: RAD 07:42 ==